=== PATIENT | female | born 1980 | race African-American/Black ===

== ENCOUNTER → 2020-07-12 | Outpatient (CLI) | payer OTHER ==
[~2020-07-12] MED LIST: AMLO10TA8 PO; IBUP200T58 PO
== END | disposition home or self-care (01) ==
LOC: LAB 09:12
PROVIDERS: ATTEND Nurse Anesthetist, Certified Registered
DX: Z01.812 Encounter for preprocedural laboratory examination (principal); Z20.828 Contact with and (suspected) exposure to other viral communicable diseases; K59.00 Constipation, unspecified
CPT/HCPCS: U0003-CS

== ENCOUNTER → 2020-07-16 | Day surgery (SDC) | payer OTHER ==
[~2020-07-16] MED LIST changes: +IPRATRPIUM/ALBUTEROL 0.5/2.5MG 3 ML NEBU. NEB PRN; +IV RINGERS SOLUTION,LACTATED 1,000 ML IV SCH; +MIDAZOLAM HCL PF 2 MG/2 ML VIAL. IV ONE; +ONDANSETRON PF 4 MG/2 ML VIAL. IV PRN
[2020-07-16 10:45] LABS: U PREG PATIENT NEGATIVE (NEG)
[2020-07-16 12:18] VITALS: BP 154/109
== END | disposition home or self-care (01) ==
LOC: EDBD 06-18 10:30 → SURG 10:20
PROVIDERS: ATTEND Emergency Medicine
DX: K59.00 Constipation, unspecified (principal); Q43.8 Other specified congenital malformations of intestine; Z79.899 Other long term (current) drug therapy
CPT/HCPCS: 45378; 81025; J2704; J7120